=== PATIENT | female | born 1970 | race Caucasian/White ===

== ENCOUNTER 2022-11-06 06:00 | Outpatient (RCR) | payer BC, SELFPAY | END 2022-11-27 23:59 | disposition home or self-care (01) | LOC: GPT 06:00 | PROVIDERS: Visit Provider Family Medicine | DX: M25.562 Pain in left knee (principal); G89.29 Other chronic pain | CPT/HCPCS: 97162 ==

== ENCOUNTER 2022-11-28 06:00 | Outpatient (RCR) | payer BC, SELFPAY | END 2022-12-28 23:59 | disposition home or self-care (01) | LOC: GPT 06:00 | PROVIDERS: Visit Provider Family Medicine | DX: M25.562 Pain in left knee (principal); G89.29 Other chronic pain | CPT/HCPCS: 97110; 97140; 97530; G0283 ==

== ENCOUNTER 2022-12-29 06:00 | Outpatient (RCR) | payer BC, SELFPAY | END 2023-01-27 23:59 | disposition home or self-care (01) | LOC: GPT 06:00 | PROVIDERS: Visit Provider Family Medicine | DX: M25.562 Pain in left knee (principal); G89.29 Other chronic pain | CPT/HCPCS: 97110; 97112; 97140 ==

== ENCOUNTER 2023-01-28 06:00 | Outpatient (RCR) | payer BC, SELFPAY | END 2023-02-27 23:59 | disposition home or self-care (01) | LOC: GPT 06:00 | PROVIDERS: Visit Provider Family Medicine | DX: M25.562 Pain in left knee (principal); G89.29 Other chronic pain | CPT/HCPCS: 97110; 97112; 97140 ==

== ENCOUNTER → 2023-08-13 15:43 | Outpatient (BNVA) | payer BC, OTHER, SELFPAY | PROVIDERS: PCP Nurse Practitioner Family; Visit Provider Nurse Practitioner Family | DX: S99.922A Unspecified injury of left foot, initial encounter (principal); W19.XXXA Unspecified fall, initial encounter | CPT/HCPCS: 73630 ==

== ENCOUNTER → 2023-09-09 11:15 | Outpatient (BNVA) | payer BC, OTHER, SELFPAY | PROVIDERS: PCP Nurse Practitioner Family; Visit Provider Nurse Practitioner Family | DX: J02.9 Acute pharyngitis, unspecified (principal); R05.9 Cough, unspecified | CPT/HCPCS: 87400; 87426; 87880 ==

== ENCOUNTER → 2024-01-01 14:55 | Outpatient (BNVA) | payer BC, OTHER, SELFPAY | PROVIDERS: PCP Nurse Practitioner Family; Visit Provider Nurse Practitioner Family | DX: J02.9 Acute pharyngitis, unspecified (principal) | CPT/HCPCS: 87070; 87071; 87400; 87426; 87880 ==

== ENCOUNTER 2024-07-16 16:27 | Emergency (ER) | payer BC, OTHER, SELFPAY ==
[2024-07-16 16:40] VITALS: BP 169/111; PULSE 90; RESP 20; TEMP 36.8; O2SAT 97; BMI 40.5
[2024-07-16 17:45] LABS: Basophils # 0.1 10^3/uL (0.0-0.1); Basophils % 0.5 %; Eosinophils # 0.2 10^3/uL (0.0-0.8); Eosinophils % 1.5 %; Hematocrit 37.8 % (36-47); Lymphocytes # 3.5 10^3/uL (0.8-4.8); Lymphocytes % 32.1 %; Mean Corpuscular HGB Conc 32.8 g/dL (30-55); Mean Corpuscular Hemoglobin 30.5 pg (27-33); Mean Corpuscular Volume 92.9 fl (85-98); Mean Platelet Volume 9.3 fL (7.4-10.4); Monocytes # 0.8 10^3/uL (0.2-0.9); Monocytes % 7.4 %; Neutrophils % 58.2 %; Nucleated Red Blood Cells % 0 %; Platelet Count 259 10^3/cmm (157-399); Red Blood Count 4.07 10^6/uL (3.85-5.65); Red Cell Distribution Width 13.2 % (12.1-15.1)
[2024-07-16 18:02] LABS: Albumin Level 4.3 g/dL (3.5-5.2); Alkaline Phosphatase 78 U/L (35-105); Anion Gap 15.4 (5-19); Aspartate Amino Transferase 15 U/L (0-32); Blood Urea Nitrogen 29 mg/dL (6-20); Calcium 9.1 mg/dL (8.5-10.5); Carbon Dioxide 23 mmol/L (22-29); Chloride 103 mmol/L (98-107); Creatinine Clr Calc Pharmacy 83.3432; Glomerular Filtration Rate 64.8 mL/min (90-130); Glucose 89 mg/dL (65-115); Lipase 38 U/L (13-60); Osmolality Calculated 289 mOsm/kg (285-295); Potassium 4.4 mmol/L (3.5-5.1); Sodium 137 mmol/L (136-145); Total Bilirubin 0.2 mg/dL (0.15-1.2); Total Protein 7.3 g/dL (6.6-8.7)
[2024-07-16 18:15] LABS: Alanine Aminotransferase 18 U/L (0-33)
[2024-07-16 19:18] VITALS: BP 148/95; PULSE 72; O2SAT 100
--- NOTE | 2024-07-16 19:19 | ED_ITS ---
HPI - Abdominal Pain 2 General: Chief Complaint: Abdominal Pain Stated Complaint: abd pain Time Seen by Provider: 07/16/24 19:15 History of Present Illness: 54-year-old female who presents to the e mergency room with right upper quadrant pain. She had planned on having her gallbladder out in [place] but this was out of network so she had not done it yet. She also had some concerns for her weight loss shots. However she says she has not been taking these and so she does not think it is that. Pain is worse today so she came to the emergency room. Some nausea. No vomiting. No fever. No altered mental status Related Data Home Medications Medication Instructions Recorded Confirmed atenolol 25 mg tablet 25 mg PO DAILY 07/02/23 01/01/24 clonidine HCl 0.1 mg tablet 0.1 mg PO DAILY PRN 07/02/23 01/01/24 gabapentin 300 mg capsule 300 mg PO TID 07/02/23 01/01/24 oxycodone-acetaminophen 10 mg-325 1 tab PO Q4H PRN 07/02/23 01/01/24 mg tablet (Percocet) tizanidine 4 mg capsule 8 mg PO TID PRN 07/02/23 01/01/24 quetiapine 50 mg tablet (Seroquel) 150 mg PO .qhs 07/31/23 01/01/24 Previous Rx's Medication Instructions Recorded tirzepatide 2.5 mg/0.5 mL 2.5 mg (0.5 mL) SUBCUT .weekly #2 09/02/23 subcutaneous pen injector mL albuterol sulfate 2.5 mg/3 mL 2.5 mg (3 mL) inhalation Q4H PRN 01/01/24 (0.083 %) solution for nebulization shortness of breath or wheezing #90 mL amoxicillin 875 mg-potassium 1 tab PO Q12H 10 days #20 tabs 01/01/24 clavulanate 125 mg tablet dextromethorphan-guaifenesin 10 10 ml PO Q6H PRN cough #300 mL 01/01/24 mg-100 mg/5 mL oral liquid (Lisa-Tussin DM) hydrocodone 5 mg-acetaminophen 325 1 tab PO Q8H PRN pain #14 tabs 07/16/24 mg tablet ondansetron 8 mg disintegrating 8 mg PO Q6H #14 tabs 07/16/24 tablet polyethylene glycol 3350 17 17 g PO DAILY #510 grams 07/16/24 gram/dose oral powder (Miralax) Allergies Allergy/AdvReac Type Severity Reaction Status Date / Time droperidol Allergy Severe CHEST PAIN Verified 07/16/24 16:40 ziprasidone [From Geodon] Allergy Severe SUICIDAL Verified 07/16/24 16:40 naproxen [From Naprosyn] AdvReac Intermediate ADR-Vomitin Verified 07/16/24 16:40 g Review of Systems 2 Narrative: Constitutional symptoms: Negative except as documented in HPI. Skin symptoms: Negative except as documented in HPI. Eye symptoms: Negative except as documented in HPI. ENMT symptoms: Negative except as documented in HPI. Respiratory symptoms: Negative except as documented in HPI. Cardiovascular symptoms: Negative except as documented in HPI. Gastrointestinal symptoms: Negative except as documented in HPI. Genitourinary symptoms: Negative except as documented in HPI. Musculoskeletal symptoms: Negative except as documented in HPI. Neurologic symptoms: Negative except as documented in HPI. Psychiatric symptoms: Negative except as documented in HPI. Endocrine symptoms: Negative except as documented in HPI. PFSH ED 2 PFSH: Family History Other CAD (coronary artery disease) Cancer Diabetes Social History Smoking and tobacco/nicotine status: current every day tobacco/nicotine user cigarettes Packs smoked per day: 0.5 Alcohol intake: current Alcohol intake frequency: few times a month Substance/Drug Use: former Date of last use: 2014 Physical Exam 2 Narrative: EXAM NARRATIVE: General: Alert, no acute distress. Skin: Warm, dry. Head: Normocephalic, atraumatic. Neck: Supple, trachea midline. Eye: Extraocular movements are intact. Ears, nose, mouth and throat: mucosa moist. Cardiovascular: Regular, Normal peripheral perfusion. Respiratory: Lungs are clear to auscultation, respirations are non-labored, breath sounds are equal, Symmetrical chest wall expansion. Gastrointestinal: Soft, right upper quadrant tenderness, Non distended Musculoskeletal: Normal ROM, no deformity. Neurological: Alert and oriented, No focal neurological deficit observed. Psychiatric: Cooperative, appropriate mood & affect. Course 2 Vital Signs: Vital signs: Vital Signs Temperature 98.2 F 07/16/24 16:40 Pulse Rate 72 07/16/24 19:18 Respiratory Rate 20 H 07/16/24 16:40 Blood Pressure 148/95 07/16/24 19:18 Pulse Oximetry 100 07/16/24 19:18 MDM - Abdominal Pain Medical Decision Making Differential diagnosis for patient presenting with right upper quadrant abdominal pain including but not limited to and based on the above HPI, review of systems and physical exam: Cholelithiasis or cholecystitis. Hepatitis. Diverticulitis. Constipation. Ureterolithiasis. Urinary tract infection. Appendicitis. colitis. small bowel obstruction. crohn's flare. pancreatitis. gastritis. peptic ulcer. Aortic disection. Workup including imaging and lab work replaced based on the above differential, history and exam to evaluate differential diagnosis Lab Review: Laboratory results were reviewed and interpreted by myself the emergency room physician. No leukocytosis. No anemia. BUN is slightly elevated at 29. Creatinine normal at 0.9 Ultrasound of the gallbladder: Some sludge but no signs of cholecystitis. This was reviewed and interpreted by myself the emergency room physician. I also reviewed the radiology report. I reviewed the patient's medical record. Reexamination: Patient remained stable. No increased work of breathing. No altered mental status. No focal motor deficits. Assessment and plan: Biliary colic ?Meron and Julio. Follow-up with general surgery - Discharged home - Discussed findings and plan with patient. Answered any questions. - All laboratory values were reviewed and interpreted personally by myself, the ER physician - All imaging was reviewed and interpreted personally by myself, the ER physician. - Evaluation and treatment of this problem were appropriate in the emergency setting Lab Data 07/16/24 17:35 07/16/24 17:35 Labs/Radiology: Radiology Impressions Gallbladder Ultrasound 07/16/24 19:19 IMPRESSION: 1. Mildly distended gallbladder with a small amount of dependent sludge. No sonographic evidence of acute cholecystitis. 2. Fatty liver. Laboratory Results WBC 11.00 10^3/uL (3.29-11.43) 07/16/24 17:35 RBC 4.07 10^6/uL (3.85-5.65) 07/16/24 17:35 Hgb 12.40 g/dL (11.27-16.99) 07/16/24 17:35 Hct 37.8 % (36-47) 07/16/24 17:35 MCV 92.9 fl (85-98) 07/16/24 17:35 MCH 30.5 pg (27-33) 07/16/24 17:35 MCHC 32.8 g/dL (30-55) 07/16/24 17:35 RDW 13.2 % (12.1-15.1) 07/16/24 17:35 Plt Count 259 10^3/cmm (157-399) 07/16/24 17:35 MPV 9.3 fL (7.4-10.4) 07/16/24 17:35 Neut % (Auto) 58.2 % 07/16/24 17:35 Lymph % (Auto) 32.1 % 07/16/24 17:35 [place] % (Auto) 7.4 % 07/16/24 17:35 Eos % (Auto) 1.5 % 07/16/24 17:35 Baso % (Auto) 0.5 % 07/16/24 17:35 Neut # (Auto) 6.40 10^3/uL (1.8-7.7) 07/16/24 17:35 Lymph # (Auto) 3.5 10^3/uL (0.8-4.8) 07/16/24 17:35 [place] # (Auto) 0.8 10^3/uL (0.2-0.9) 07/16/24 17:35 Eos # (Auto) 0.2 10^3/uL (0.0-0.8) 07/16/24 17:35 Baso # (Auto) 0.1 10^3/uL (0.0-0.1) 07/16/24 17:35 Nucleated RBC % (auto) 0 % 07/16/24 17:35 Nucleated RBCs # 0.0 /100WBC 07/16/24 17:35 Sodium 137 mmol/L (136-145) 07/16/24 17:35 Potassium 4.4 mmol/L (3.5-5.1) 07/16/24 17:35 Chloride 103 mmol/L (98-107) 07/16/24 17:35 Carbon Dioxide 23 mmol/L (22-29) 07/16/24 17:35 Anion Gap 15.4 (5-19) 07/16/24 17:35 BUN 29 mg/dL (6-20) H 07/16/24 17:35 Creatinine 0.9 mg/dL (0.5-0.9) 07/16/24 17:35 GFR Calculation 64.8 mL/min (90-130) L 07/16/24 17:35 Glucose 89 mg/dL (65-115) 07/16/24 17:35 Calculated Osmolality 289 mOsm/kg (285-295) 07/16/24 17:35 Calcium 9.1 mg/dL (8.5-10.5) 07/16/24 17:35 Total Bilirubin 0.2 mg/dL (0.15-1.2) 07/16/24 17:35 AST 15 U/L (0-32) 07/16/24 17:35 ALT 18 U/L (0-33) 07/16/24 17:35 Alkaline Phosphatase 78 U/L (35-105) 07/16/24 17:35 Total Protein 7.3 g/dL (6.6-8.7) 07/16/24 17:35 Albumin 4.3 g/dL (3.5-5.2) 07/16/24 17:35 Globulin 3.0 g/dL (1.3-4.6) 07/16/24 17:35 Lipase 38 U/L (13-60) 07/16/24 17:35 Urine Color Yellow (Yellow) 07/16/24 Unknown Urine Appearance Clear (CLEAR) 07/16/24 Unknown Urine pH 5.5 (5-7) 07/16/24 Unknown Ur Specific [place] 1.030 (1.005-1.030) 07/16/24 Unknown Urine Protein Negative (Negative) 07/16/24 Unknown Urine Glucose (UA) Negative (Normal) 07/16/24 Unknown Urine Ketones Negative (Negative) 07/16/24 Unknown Urine Blood Negative (Negative) 07/16/24 Unknown Urine Nitrate Negative (Negative) 07/16/24 Unknown Urine Bilirubin Negative (Negative) 07/16/24 Unknown Urine Urobilinogen 1.0 mg/dL (Negative) 07/16/24 Unknown Ur Leukocyte Esterase Negative (Negative) 07/16/24 Unknown Urine RBC 0-2 /hpf (0-2) 07/16/24 Unknown Urine WBC 0-5 /hpf (0-5) 07/16/24 Unknown Ur Squamous Epith Cells 11-20 /hpf (0-5) 07/16/24 Unknown Amorphous Sediment Not Reportable 07/16/24 Unknown Urine Bacteria 1+ /hpf (NONE) H 07/16/24 Unknown Hyaline Casts 0.40 /lpf 07/16/24 Unknown All radiology interpretation(s) finalized by discharge Discharge Plan Discharge Patient Disposition: Home Clinical Impression: Biliary colic Condition: Stable Prescriptions: New hydrocodone-acetaminophen 5-325 mg tablet 1 tab PO Q8H PRN (Reason: pain) Qty: 14 0RF Rx Instructions: Take 1/2 to 1 tab every 8 hours as needed for pain polyethylene glycol 3350 [Miralax] 17 gram/dose powder 17 g PO DAILY Qty: 510 0RF Rx Instructions: Take 1 scoop daily while taking pain medications. ondansetron 8 mg tablet,disintegrating 8 mg PO Q6H Qty: 14 0RF Rx Instructions: Take 1/2-1 tab every 6 hours as needed for nausea and vomiting No Action oxycodone-acetaminophen [Percocet] 10-325 mg tablet 1 tab PO Q4H PRN tizanidine 4 mg capsule 8 mg PO TID PRN gabapentin 300 mg capsule 300 mg PO TID atenolol 25 mg tablet 25 mg PO DAILY clonidine HCl 0.1 mg tablet 0.1 mg PO DAILY PRN Rx Instructions: take only if systolic blood pressure is greater than 180 quetiapine [Seroquel] 50 mg tablet 150 mg PO .qhs tirzepatide 2.5 mg/0.5 mL pen injector 2.5 mg SUBCUT .weekly Qty: 2 0RF albuterol sulfate 2.5 mg /3 mL (0.083 %) solution for nebulization 2.5 mg inhalation Q4H PRN (Reason: shortness of breath or wheezing) Qty: 90 0RF dextromethorphan-guaifenesin [Lisa-Tussin DM] 10-100 mg/5 mL liquid 10 ml PO Q6H PRN (Reason: cough) Qty: 300 0RF amoxicillin-pot clavulanate 875-125 mg tablet 1 tab PO Q12H 10 Days Qty: 20 0RF Discharge Orders: Discharge ED (Routine); Ordered 07/16/24 Ordered By: Arleth Vo Referrals: Aroldo Christie DO [Physician] - 4-7 days (Please call for an appointment.) Sheree Jorge, NETO [Primary Care Provider] - Discharge Diet: As Directed Discharge Activity: Increase activity as tolerated Patient Instructions: Biliary Colic (ED), Abdominal Pain (ED) Activity Restrictions/Additional Instructions: Thank you for choosing [facility] for your healthcare needs today. Please realize this is an emergency room and that we are providing you with a medical screening exam and this may not be complete and all inclusive of all the testing and or work up that you may need to determine your ailment or severity of your illness. You have been screened and evaluated and felt safe for discharge. Health conditions do change or evolve sometimes and as such it is important that you follow up with your Primary Doctor to be re checked, 3-5 days is a general good time frame for follow up. You are always welcome to return to the ED for re assessment if your symptoms are worsening or you have new concerns Coding Level of Care Code ED Broaching Machine Set Up Operator for Patrick Jerry
--- NOTE | 2024-07-16 19:19 | USR_ITS ---
PROCEDURE INFORMATION: Exam: US Abdomen, Limited; Right Upper Quadrant Exam date and time: 07/16/2024 7:54 PM Age: 54 years old Clinical indication: Abdominal pain; Epigastric; Additional info: Right upper quadrant pain, concern for cholecystitis TECHNIQUE: Imaging protocol: Real time ultrasound of the abdomen with image documentation. Limited exam focused on the right upper quadrant. COMPARISON: No relevant prior studies available. FINDINGS: Liver: Echogenic, consistent with fatty infiltration. Gallbladder: Mildly distended with a small amount of dependent sludge. No gallstones. No gallbladder wall thickening or pericholecystic fluid. Negative sonographic Bradford's sign, as per the performing factory maintenance technician. Biliary ducts: No stones. No ductal dilatation. Pancreas: Unremarkable as visualized. Right kidney: No mass. No definite stones. No hydronephrosis. US/US gall bladder 89580 IMPRESSION: 1. Mildly distended gallbladder with a small amount of dependent sludge. No sonographic evidence of acute cholecystitis. 2. Fatty liver.
[2024-07-16 19:47] LABS: Bilirubin Urine Negative (Negative); Blood Urine Negative (Negative); Glucose Urine UA Negative (Normal); Ketones Urine Negative (Negative); Leukocyte Esterase Urine Negative (Negative); Nitrate Urine Negative (Negative); Protein Urine Negative (Negative); Urine Appearance Clear (CLEAR); Urine Color Yellow (Yellow); pH Urine 5.5 (5-7)
[2024-07-16 19:49] LABS: Add Urine Microscopic? YES; Bacteria Urine 1+ /hpf; RBC Urine 0-2 /hpf (0-2); WBC Urine 0-5 /hpf (0-5)
[2024-07-16 21:30] VITALS: PULSE 61; O2SAT 99
--- NOTE | 2024-07-16 22:20 | PC.NURSE ---
This nurse assumed care of patient at 2129.
[2024-07-16 22:28] VITALS: BP 150/93; PULSE 68; O2SAT 99
== END 2024-07-16 22:30 | disposition home or self-care (01) ==
PROVIDERS: Emergency Medicine; Emergency Provider Emergency Medicine; PCP Nurse Practitioner Family
DX: K80.50 Calculus of bile duct without cholangitis or cholecystitis without obstruction (principal); F17.210 Nicotine dependence, cigarettes, uncomplicated
CPT/HCPCS: 36415; 76705; 80053; 81001; 83690; 85025; 99284

== ENCOUNTER 2024-08-11 07:51 | Day surgery (SDC) | payer BC, OTHER, SELFPAY ==
[2024-08-11] VITALS (13 sets, daily range): BP systolic 126–160; BP diastolic 64–94; PULSE 64–105; RESP 12–20; TEMP 36.2–36.6; O2SAT 96–100; BMI 41.1
--- NOTE | 2024-08-11 07:56 | W.PM.OPSUD ---
Surgery/Procedure H&P Update DATE OF PROCEDURE: August 11, 2024 DATE H&P PERFORMED: 07/27/24 H&P UPDATE INFORMATION: I have reviewed H&P completed within last 30 days, I have examined patient prior to procedure and No changes to prior documentation PLANNED PROCEDURE: Operation Date: 08/11/24 09:45 Proposed Procedures p Laparoscopic Cholecystectomy - 71492, k80.20(Not Applicable) - Aroldo Christie, DO
[2024-08-11] MEDS: sodium chloride 0.9% 1,000 ML 30 ML IV (08:25)
--- NOTE | 2024-08-11 08:40 | ANES.PREANE2 ---
Pre-Anesthetic Assessment Height/Weight: Height 5 ft 4 in Weight 240 lb Temp Pulse Resp BP Pulse Ox O2 Del Method 97.4 F L 73 15 150/89 100 Room Air 08/11/24 08:18 08/11/24 08:18 08/11/24 08:18 08/11/24 08:18 08/11/24 08:18 08/11/24 08:18 Preop Diagnosis: Cholecystitis Operation Date: 08/11/24 09:45 Proposed Procedures p Laparoscopic Cholecystectomy - 00570, k80.20(Not Applicable) - Aroldo Christie, DO Was Beta Connor taken within 24 hours: Yes Was Clonidine taken within 24 hours: N/A Last intake: Intake Last Liquid Date 08/10/24 Last Liquid Time 23:30 Last Solid Date 08/10/24 Last Solid Time 23:00 Social Tobacco and No alcohol Exam alert, oriented x 3, clear to auscultation bilaterally and regular rate & rhythm Airway Submandibular: within normal limits Cervical ROM: within normal limits Mallampati: Class III Dentition: other Comments: Comments: Edentulous Anesthetic Plan ASA status: 3 Anesthesia: General Other: No prior issues with anesthesia NPO since yesterday History of hypertension on atenolol, clonidine and olmesartan. Preop BP 150/89 Prior semaglutide use, not used in the last month Chronic oxycodone use Labs 07/16/2024 reviewed and acceptable for procedure METs greater than 4 Plan for GETA Medications/Allergies Home Medications Medication Instructions Recorded Confirmed Last Taken Type atenolol 25 mg tablet 25 mg PO DAILY 07/02/23 08/10/24 08/09/24 History clonidine HCl 0.1 mg tablet 0.1 mg PO DAILY PRN Blood Pressure 07/02/23 08/10/24 Unknown History gabapentin 300 mg capsule 300 mg PO TID 07/02/23 08/10/24 08/09/24 History oxycodone-acetaminophen 10 mg-325 1 tab PO Q4H PRN Pain 07/02/23 08/11/24 08/11/24 History mg tablet (Percocet) tizanidine 4 mg capsule 8 mg PO TID PRN Pain 07/02/23 08/10/24 08/09/24 History quetiapine 50 mg tablet (Seroquel) 150 mg PO .qhs 07/31/23 08/10/2408/09/24 History albuterol sulfate 2.5 mg/3 mL 2.5 mg (3 mL) inhalation Q4H PRN 01/01/24 08/10/24 Unknown Rx (0.083 %) solution for nebulization shortness of breath or wheezing #90 mL ondansetron 8 mg disintegrating 8 mg PO Q6H #14 tabs 07/16/24 08/10/24 Unknown Rx tablet polyethylene glycol 3350 17 17 g PO DAILY #510 grams 07/16/24 08/10/24 08/09/24 Rx gram/dose oral powder (Miralax) hydrocodone bitartrate 30 mg 30 mg PO DAILY 07/27/24 08/10/24 08/10/24 History tablet,crush resist,extended rel. 24hr (Hysingla ER) olmesartan 5 mg tablet 5 mg PO BID 07/27/24 08/10/24 Unknown History semaglutide (weight loss) 0.5 0.5 mg SUBCUT Q7D 07/27/24 08/10/24 07/13/24 History mg/0.5 mL subcutaneous pen injector topiramate 25 mg tablet 25 mg PO DAILY 08/10/24 08/10/24 08/10/24 History Allergies Allergy/AdvReac Type Severity Reaction Status Date / Time droperidol Allergy Severe CHEST PAIN Verified 08/11/24 08:08 ziprasidone [From Geodon] Allergy Severe SUICIDAL Verified 08/11/24 08:08 naproxen [From Naprosyn] AdvReac Intermediate ADR-Vomitin Verified 08/11/24 08:08 g Current Medications Generic Name Dose Route Start Last Admin Trade Name Freq PRN Reason Stop Dose Admin Sodium Chloride 1,000 mls @ 30 mls/hr 08/11/24 08:00 08/11/24 08:25 Sodium Chloride 0.9% IV 08/12/24 07:59 30 mls/hr .Q24H FERNANDO Administration PFSH Anesthesia Family History Other CAD (coronary artery disease) Cancer Diabetes Social History Smoking and tobacco/nicotine status: current every day tobacco/nicotine user cigarettes Packs smoked per day: 0.5 Alcohol intake: current Alcohol intake frequency: few times a month Substance/Drug Use: former Date of last use: 2014 Data Anesthesia Cardiac Studies: No Data to Display
[2024-08-11] MEDS: ceFAZolin 2,000 mg SDV 2000 MG IVP (08:42)
[2024-08-11] MEDS: lidocaine-epi 2% PF 1:200,000 20 mL SDV XX (09:12)
[2024-08-11] MEDS: tranexamic acid 1,000 mg/10mL SDV 1000 MG IV (09:30)
--- NOTE | 2024-08-11 09:41 | P.OP_ITS ---
Operative Report Date of procedure: August 11, 2024 Surgeon: Aroldo Christie DO Brief History: This very pleasant 54-year-old female was diagnosed with symptomatic cholelithiasis. Laparoscopic cholecystectomy was indicated. The risks and benefits were explained and documented. Procedure: Preoperative diagnosis: Symptomatic cholelithiasis Postoperative diagnosis: Same Procedure performed: Laparoscopic cholecystectomy, laparoscopic lysis of adhesions Surgeon: Dr. Aroldo Christie DO Estimated blood loss: 5 mL Specimens: Gallbladder to pathology Complications: None apparent Description of procedure: Patient was wheeled into the operative room and placed on the OR table in a supine position. Abdomen was inspected prepped and draped in usual sterile fashion. Time-out was performed and all present were in agreement. A 15 blade scalp was used to make a stab incision in the left upper quadrant and intra- abdominal insufflation was achieved using a Veress needle. After localizing the tissue incisions were made and a 5 millimeter trocar was placed into the umbilicus as well as 2 in the right upper quadrant. A 12 millimeter trocar was placed in the epigastrium. Significant omental and duodenal adhesions to the gallbladder. These were very carefully taken down by laparoscopic lysis of adhesions with electrocautery. The duodenum was preserved and examined for integrity. No damage to the duodenum was identified. Gallbladder was grasped and elevated. The triangle of Calot was carefully dissected using blunt dissection and electrocautery until the triangle of Calot clearly identified. The cystic duct was clipped proximally and double clipped distally. The duct was then ligated proximally. The cystic artery was doubly clipped and ligated. The gallbladder was then removed from the liver bed using electrocautery. The gallbladder was removed from the abdomen using an Endo- Catch bag through the epigastric incision. The liver bed was inspected and minor blood oozing was controlled with electrocautery and 1 g of tranexamic acid. The abdomen was irrigated and suctioned. All ports removed. Skin was washed and dried. Incisions were closed with 4-0 Monocryl in a subcuticular interrupted fashion. Skin glue was applied. Patient tolerated the procedure well.
[2024-08-11] MEDS: fentaNYL 50 mcg/mL INJ 2mL IVP (10:07)
[2024-08-11] MEDS: oxyCODONE-APAP 10-325 mg Tablet 1 TAB PO (10:34)
--- NOTE | 2024-08-11 11:35 | ANE.PACU2 ---
Inpatient post-anesthesia follow up: Airway intact: Yes Vital signs: Temperature 97.8 F Pulse Rate 66 Respiratory Rate 16 Blood Pressure 140/64 Pulse Oximetry 98 Oxygen Delivery Me thod Room Air Oxygen Flow Rate 8 Fraction of Inspir ed Oxygen Hydration adequate: Yes Nausea and vomiting: No Pain level: 1 Mental status: Baseline
== END 2024-08-11 11:35 | disposition home or self-care (01) ==
PROVIDERS: PCP Nurse Practitioner Family; Visit Provider Surgery
PROC: 0FT44ZZ Resection of Gallbladder, Percutaneous Endoscopic Approach (ICD-10-PCS; CPT 47562; principal; 2024-08-11 09:35)
DX: K80.10 Calculus of gallbladder with chronic cholecystitis without obstruction (principal); K66.0 Peritoneal adhesions (postprocedural) (postinfection); I10 Essential (primary) hypertension; F17.210 Nicotine dependence, cigarettes, uncomplicated
CPT/HCPCS: 47562; 88304; J0690; J1100; J1171; J1885; J2250; J2405; J2704; J3010; J3490; J7030

== ENCOUNTER 2025-01-21 14:00 | Outpatient (CLI) | payer BC, OTHER, SELFPAY ==
--- NOTE | 2025-01-21 14:00 | MM_ITS ---
WS: [id number] VIEWS: MLO and CC views both breasts. 3D digital tomosynthesis is also included in this exam. Comparison made with prior exam of 01/03/2010.. Findings: The breasts are heterogeneously dense, which may obscure small masses. No suspicious mass, tumor calcification or architectural distortion. MM/MM scr BI tomosynthesis [id number] Impression: BI-RADS: 2 - Benign FOLLOW-UP: 1 Year Follow-up This mammogram was also analyzed by the Computer Aided Detection System R2 Imag e Literary Agent.
== END 2025-01-21 14:01 | disposition home or self-care (01) ==
PROVIDERS: PCP Nurse Practitioner Family; Visit Provider Nurse Practitioner Family
DX: Z12.31 Encounter for screening mammogram for malignant neoplasm of breast (principal); R92.333 Mammographic heterogeneous density, bilateral breasts
CPT/HCPCS: 77063; 77067

== ENCOUNTER 2025-08-23 19:47 | Outpatient (CLI) | payer OTHER, MEDICAID, BC, SELFPAY | END 2025-08-23 19:48 | disposition home or self-care (01) | LOC: SLEEP 19:49 | PROVIDERS: PCP Nurse Practitioner Family; Referring Provider Nurse Practitioner Family; Visit Provider Internal Medicine Pulmonary Disease | DX: G47.33 Obstructive sleep apnea (adult) (pediatric) (principal) | CPT/HCPCS: 95810 ==

== ENCOUNTER 2025-09-27 16:25 | Emergency (ER) | payer BC, OTHER, MEDICAID, SELFPAY ==
--- OUTSIDE RECORDS SUMMARY | 2025-09-27 16:31 | XMS_ITS | Clinical Summary ---
Author Organization [facility] Address [address] [place]: Epic [place] [address] Care Team Providers Care Historiographer Name Role Phone Maribell Traylor MD Primary Care Provider [phone] Allergies Active Allergy Reactions Criticality Noted Date Comments Droperidol Unknown 03/04/2012 Hydrocodone-Acetaminophen Itching Low 03/04/2012 Naproxen Unknown 01/14/2018 Paliperidone Unknown 03/04/2012 Medications tiZANidine (ZANAFLEX) 4 mg Tablet Take 8 mg by mouth every 8 hours as needed for Spasm. Active olmesartan (BENICAR) 5 mg tablet Take 5 mg by mouth daily. Active QUEtiapine (SEROquel) 50 mg tablet Take 50 mg by mouth daily. Active atenoloL (TENORMIN) 25 mg tablet Take 25 mg by mouth daily. Active oxyCODONE (OxyCONTIN) 20 mg Controlled Release 12 hour crush resistant tablet Take 20 mg by mouth every 12 hours. Active morphine (MS IR) 15 mg tablet Take 15 mg by mouth 2 times daily as needed for Pain, Break-Through. Active gabapentin (NEURONTIN) 300 mg capsule Take 300 mg by mouth 3 times daily. Active semaglutide, weight loss, (Wegovy) 0.5 mg/0.5 mL Pen Injector Inject 0.5 mg by subcutaneous injection every 7 days. Active topiramate (TOPAMAX) 25 mg tablet Take 25 mg by mouth daily. Active cloNIDine HCL (CATAPRES) 0.1 mg tablet Take 0.1 mg by mouth 1 time daily as needed. 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 2021 Encounters Date Type Department Care Team Description 09/14/2025 External Device Data [facility] ABSTRACTION Provider, Abstract 09/14/2025 External Device Data [facility] ABSTRACTION Provider, Abstract 09/07/2025 External Device Data [facility] ABSTRACTION Provider, Abstract 08/17/2025 External Device Data [facility] ABSTRACTION Provider, Abstract 08/10/2025 Telephone [facility] [place] [id number] [facility] [place] [address] Leander Hammond MD Question 07/28/2025 External Device Data ST[facility] ABSTRACTION Provider, Abstract 07/27/2025 External Device Data [facility] ABSTRACTION Provider, Abstract from Last 3 Months Family History Medical History Relation Name Comments Diabetes Father Lung Cancer Father Heart Disease Maternal Grandfather Diabetes Maternal Grandmother Heart Disease Mother Hypertension Mother Stroke Mother Diabetes Paternal Grandmother Relation Name Status Comments Father Maternal Grandfather Maternal Grandmother Mother Paternal Grandmother Social History Tobacco Use Types Packs/Day Years Used Date Smoking Tobacco: Every Day Cigarettes Smokeless Tobacco: Never Tobacco Cessation:Ready to Q uit: Not Asked; Counseling Given: Not Answered Alcohol Use Standard Drinks/Week Comments Yes 0 (1 standard drink = 0.6 oz pur e alcohol) Comments Unknown Sex and Gender Information Value Date Recorded Sex Assigned at Female 09/14/2024 10:24 AM FRAME OPENER Legal Sex Female 12:45 PM FRAME OPENER Gender Identity Female 09/14/2024 10:24 AM FRAME OPENER Sexual Orientation Straight 09/14/2024 10 :24 AM FRAME OPENER Last Filed Vital Signs Vital Sign Reading Time Taken Comments Blood Pressure 136/78 2025 11:43 AM CDT Pulse 113 04/03/2022 8:24 AM CDT Temperature 36.9 C (98.4 F) 04/03/2022 8:24 AM CDT Respiratory Rate 18 04/03/2022 8:24 AM CDT Oxygen Saturation 96% 04/03/2022 8:24 AM CDT Inhaled Oxygen Concentration - - Weight 124.3 kg (274 lb) 2025 11:43 AM CDT Height 162.6 cm (5' 4 ) 2025 11:43 AM CDT Body Mass Index 47.03 2025 11:43 AM CDT Plan of Treatment Health Maintenance Due Date Last Done Comments Pre-Diabetes and Diabetes Screening 1970 DTAP/TDAP/TD VACCINES (1 - Tdap) 12/31/1986 HEPATITIS B VACCINES (1 of 3 - 19+ 3-dose series) 11/1986 HPV/Cotest (21-29) 12/31/1988 CERVICAL CANCER SCREENING 12/31/1997 HPV/Cotest (30-65) 12/31/1997 PAP SMEAR 12/31/1997 BREAST CANCER SCREENING 2008 COLORECTAL SCREENING 12/31/2012 Colorectal Cancer Screening 12/31/2012 FIT-DNA Q 3 years 12/31/2012 FIT/FOBT Q 1 year 12/31/2012 Flex Sig/CT Colonography Q 5 years 12/31/2012 ZOSTER VACCINE (1 of 2) 12/31/2017 INFLUENZA VACCINE (#1) 2025 Insurance [facility] [id number] Care Teams Historiographer Relationship Specialty Start Date End Date Maribell Traylor MD [address] [place] [address] PCP - General Internal Medicine 01/14/18
[2025-09-27 16:49] VITALS: BP 177/102; PULSE 82; TEMP 36.8; O2SAT 97; BMI 49.9
--- NOTE | 2025-09-27 17:29 | XRR_ITS ---
PROCEDURE INFORMATION: Exam: XR Chest Exam date and time: 09/27/2025 5:31 PM Age: 55 years old Clinical indication: Pain; Angina pectoris; Additional info: Chest pain TECHNIQUE: Imaging protocol: Radiologic exam of the chest. Views: 1 view. COMPARISON: No relevant prior studies available. FINDINGS: Lungs: Unremarkable. No consolidation. Pleural spaces: Unremarkable. No pleural effusion. No pneumothorax. Heart/Mediastinum: Heart is enlarged. Bones/joints: Unremarkable. XR/XR chest 1V portable [id number] IMPRESSION: Cardiomegaly
--- NOTE | 2025-09-27 17:39 | ECG_ITS ---
[employer] Test Date: 2025-09-27 Pat Name: Mary Koo Department: Room: Gender: Female Customs And Immigration Officer: : 1970 Requested By: Rogelio Pichardo Order Number: [id number] Chanelle MD: Berto Pena M.D. Measurements Intervals [place] Rate: 78 P: 57 UT: 165 QRS: -14 QRSD: 97 T: 85 QT: 390 QTc: 445 Interpretive Statements SINUS RHYTHM WITH SINUS ARRHYTHMIA NONSPECIFIC T-WAVE ABNORMALITY No previous ECG available for comparison Electronically Signed On 09-30-2025 16:19:40 TYPE CASTING MACHINE OPERATOR by Berto Pena M.D. [email or web address]
[2025-09-27 17:57] LABS: Hematocrit 38.5 % (36-47); Hemoglobin 12.10 g/dL (11.27-16.99); Mean Corpuscular HGB Conc 31.4 g/dL (30-55); Mean Corpuscular Hemoglobin 28.9 pg (27-33); Mean Corpuscular Volume 91.9 fl (85-98); Nucleated Red Blood Cells % 0 %; Platelet Count 253 10^3/cmm (157-399); Red Blood Count 4.19 10^6/uL (3.85-5.65); White Blood Count 10.19 10^3/uL (3.29-11.43)
[2025-09-27 18:15] LABS: Troponin(5th) Baseline 29 ng/L (0-10)
[2025-09-27 18:17] LABS: Alanine Aminotransferase 26 U/L (0-33); Albumin Level 4.3 g/dL (3.5-5.2); Alkaline Phosphatase 83 U/L (35-105); Anion Gap 14.4 (5-19); Aspartate Amino Transferase 20 U/L (0-32); Blood Urea Nitrogen 19 mg/dL (6-20); Calcium 9.2 mg/dL (8.5-10.5); Carbon Dioxide 28 mmol/L (22-29); Chloride 100 mmol/L (98-107); Globulin 2.5 g/dL (1.3-4.6); Glucose 107 mg/dL (65-115); Osmolality Calculated 289 mOsm/kg (285-295); Potassium 4.4 mmol/L (3.5-5.1); Sodium 138 mmol/L (136-145); Total Protein 6.8 g/dL (6.6-8.7)
--- NOTE | 2025-09-27 18:29 | ECG_ITS ---
[facility] Date: 2025-09-27 Pat Name: Mary Koo Department: Room: Gender: Female Manager In Training: : 1970 Requested By: Rogelio Pichardo Order Number: [id number] Reading MD: GEOFFREY SAUCEDO Measurements Intervals [place] Rate: 72 P: 55 [place]: 176 QRS: -8 QRSD: 102 T: 83 QT: 391 QTc: 429 Interpretive Statements SINUS RHYTHM NONSPECIFIC T-WAVE ABNORMALITY Compared to ECG 09/27/2025 17:39:23 Sinus arrhythmia no longer present T-wave abnormality still present Electronically Signed On 09-30-2025 18:51:35 CONTROL SYSTEMS DRAFTING OFFICER by GEOFFREY SAUCEDO [email or web address]
--- NOTE | 2025-09-27 18:37 | W.ED.CHESTPA ---
HPI - Chest Pain General: Chief Complaint: Chest Pain Stated Complaint: cp Time Seen by Provider: 09/27/25 17:28 History of Present Illness: 55-year-old female presents emergency room complaining of elevated blood pressure and chest pain intermittently for the last 3 days. Pain is little worse when she takes a deep breath. She reports it radiates into her neck and into her back she not had any fever sweats chills. She tells me she has a murmur in the past. Her blood pressure has been very labile. She occasionally does take clonidine for it. Associated symptoms: Deny abdominal pain, dyspnea or fever(s) Related Data Home Medications ?Medication ?Instructions ?Recorded ?Confirmed gabapentin 300 mg capsule 300 mg PO TID 07/02/23 09/27/25 oxycodone-acetaminophen 10 mg-325 1 tab PO Q4H PRN Pain 07/02/23 09/27/25 mg tablet (Percocet) tizanidine 4 mg capsule 8 mg PO TID PRN Pain 07/02/23 09/27/25 hydrocodone bitartrate 30 mg 30 mg PO DAILY 07/27/24 09/27/25 tablet,crush resist,extended rel. 24hr (Hysingla ER) Previous Rx's ?Medication ?Instructions ?Recorded albuterol sulfate 2.5 mg/3 mL 2.5 mg (3 mL) inhalation Q4H PRN 01/01/24 (0.083 %) solution for nebulization shortness of breath or wheezing #90 mL polyethylene glycol 3350 17 17 g PO DAILY #510 grams 07/16/24 gram/dose oral powder (Miralax) atenolol 25 mg tablet 25 mg PO DAILY #90 tabs 06/28/25 quetiapine 50 mg tablet (Seroquel) 150 mg (3 x 50 mg) PO .qhs #30 tabs 07/02/25 albuterol sulfate 90 mcg/actuation See Rx Instructions .Route 08/09/25 aerosol inhaler .COMPLEX #8.5 grams CPAP (Auto-Titrating CPAP) #1 ea 09/27/25 amlodipine 5 mg tablet 5 mg PO DAILY #30 tabs 09/27/25 clonidine HCl 0.1 mg tablet 0.1 mg PO DAILY PRN Blood Pressure 09/27/25 #30 tabs olmesartan 20 mg tablet 20 mg PO DAILY #90 tabs 09/27/25 Allergies Allergy/AdvReac Type Severity Reaction Status Date / Time droperidol Allergy Severe CHEST PAIN Verified 09/27/25 16:54 ziprasidone (From Geodon) Allergy Severe SUICIDAL Verified 09/27/25 16:54 paliperidone (From Invega) Allergy Unknown Verified 09/27/25 16:54 naproxen (From Naprosyn) AdvReac Intermediate ADR-Vomitin Verified 09/27/25 16:54 g Review of Systems Const: Denies: fever(s) or chills Card: Reports: chest pain Resp: Denies: dyspnea GI: Denies: abdominal pain : Denies: dysuria, urinary frequency or urinary urgency Musc: Denies: neck pain or back pain Skin/Breast: Denies: rash PFSH ED PFSH: Medical History CAD (coronary artery disease) Surgical History H/O abdominal hysterectomy History of bladder surgery x4 H/O hand surgery rt Hx of tubal ligation Status post laparoscopic cholecystectomy Family History Other CAD (coronary artery disease) Cancer Diabetes Social History Smoking and tobacco/nicotine status: current every day tobacco/nicotine user cigarettes Packs smoked per day: 0.5 Alcohol intake: current Alcohol intake frequency: few times a month Substance/Drug Use: former Date of last use: 2014 Physical Exam Const: COMMON NORMALS: no acute distress GENERAL APPEARANCE: cooperative and comfortable ORIENTATION/CONSCIOUSNESS: Yes awake, Yes oriented to person, Yes oriented to place and Yes oriented to time HENMT: COMMON NORMALS: normocephalic, atraumatic and hearing grossly normal bilaterally HEAD & SCALP: normocephalic and atraumatic Resp: COMMON NORMALS: normal respiratory effort, No retractions, No use of accessory muscles and clear to auscultation bilaterally AUSCULTATION: clear to auscultation bilaterally Cardio: COMMON NORMALS: regular rate, regular rhythm and No murmurs present (Cardio) RATE: regular rate RHYTHM: regular rhythm GI: COMMON NORMALS: Soft to palpation and No hepatosplenomegaly present AUSCULTATION: Yes normoactive bowel sounds PALPATION: Yes Soft to palpation, No Tenderness to palpation present (GI), No Guarding due to palpation present (GI) and Yes No hepatosplenomegaly present Extremity: COMMON NORMALS: normal to inspection, capillary refill normal, no clubbing, cyanosis or edema, no calf tenderness and no pedal edema Neuro: SENSORIUM/ORIENTATION: Yes oriented to person, Yes oriented to place and Yes oriented to time Skin: COMMON NORMALS: no rashes or lesions noted GENERAL SKIN EXAM: no rashes or lesions noted Course Vital Signs: Vital signs: Vital Signs Temperature 98.2 F 09/27/25 16:49 Pulse Rate 87 09/27/25 20:42 Blood Pressure 176/82 09/27/25 20:42 Pulse Oximetry 98 09/27/25 20:42 Oxygen Delivery Me thod Room Air 09/27/25 19:51 MDM - Chest Pain Medical Decision Making Labs and imaging reviewed. Patient has had chest pain intermittently for 3 weeks very atypical in nature EKG does not show any acute changes troponins no significant delta. She does have some hypertension. Will add amlodipine and have her follow-up with her primary care doctor recheck blood pressure for the next week additionally make arrangements for her to follow-up with cardiology on an outpatient basis. Return if she has further chest discomfort or change in Medical Records I reviewed the patient's medical records. Lab Data I reviewed the patient's lab results. 09/27/25 17:47 09/27/25 17:47 Radiology Impressions Chest X-Ray 09/27/25 17:29 IMPRESSION: Cardiomegaly Laboratory Results WBC 10.19 10^3/uL (3.29-11.43) 09/27/25 17:47 RBC 4.19 10^6/uL (3.85-5.65) 09/27/25 17:47 Hgb 12.10 g/dL (11.27-16.99) 09/27/25 17:47 Hct 38.5 % (36-47) 09/27/25 17:47 MCV 91.9 fl (85-98) 09/27/25 17:47 MCH 28.9 pg (27-33) 09/27/25 17:47 MCHC 31.4 g/dL (30-55) 09/27/25 17:47 RDW 12.8 % (12.1-15.1) 09/27/25 17:47 Plt Count 253 10^3/cmm (157-399) 09/27/25 17:47 MPV 9.0 fL (7.4-10.4) 09/27/25 17:47 Neut % (Auto) 63.6 % 09/27/25 17:47 Lymph % (Auto) 23.6 % 09/27/25 17:47 Harrison % (Auto) 9.7 % 09/27/25 17:47 Eos % (Auto) 2.2 % 09/27/25 17:47 Baso % (Auto) 0.6 % 09/27/25 17:47 Neut # (Auto) 6.49 10^3/uL (1.8-7.7) 09/27/25 17:47 Lymph # (Auto) 2.4 10^3/uL (0.8-4.8) 09/27/25 17:47 Harrison # (Auto) 1.0 10^3/uL (0.2-0.9) H 09/27/25 17:47 Eos # (Auto) 0.2 10^3/uL (0.0-0.8) 09/27/25 17:47 Baso # (Auto) 0.1 10^3/uL (0.0-0.1) 09/27/25 17:47 Nucleated RBC % (auto) 0 % 09/27/25 17:47 Nucleated RBCs # 0.0 /100WBC 09/27/25 17:47 Sodium 138 mmol/L (136-145) 09/27/25 17:47 Potassium 4.4 mmol/L (3.5-5.1) 09/27/25 17:47 Chloride 100 mmol/L (98-107) 09/27/25 17:47 Carbon Dioxide 28 mmol/L (22-29) 09/27/25 17:47 Anion Gap 14.4 (5-19) 09/27/25 17:47 BUN 19 mg/dL (6-20) 09/27/25 17:47 Creatinine 1.0 mg/dL (0.5-0.9) H 09/27/25 17:47 GFR Calculation 57.1 mL/min (90-130) L 09/27/25 17:47 Glucose 107 mg/dL (65-115) 09/27/25 17:47 Calculated Osmolality 289 mOsm/kg (285-295) 09/27/25 17:47 Calcium 9.2 mg/dL (8.5-10.5) 09/27/25 17:47 Total Bilirubin 0.3 mg/dL (0.15-1.2) 09/27/25 17:47 AST 20 U/L (0-32) 09/27/25 17:47 ALT 26 U/L (0-33) 09/27/25 17:47 Alkaline Phosphatase 83 U/L (35-105) 09/27/25 17:47 Troponin T Baseline 29 ng/L (0-10) H 09/27/25 17:47 Troponin T 60 Minute 28.49 ng/L (0-10) H 09/27/25 18:37 Delta Troponin T -0.51 ABS# (0-10) L 09/27/25 18:37 Total Protein 6.8 g/dL (6.6-8.7) 09/27/25 17:47 Albumin 4.3 g/dL (3.5-5.2) 09/27/25 17:47 Globulin 2.5 g/dL (1.3-4.6) 09/27/25 17:47 All radiology interpretation(s) finalized by discharge ED provider radiology interpretation(s): Chest x-ray read by myself Cardiomegaly. Poor inspiration. No infiltrates or effusions. No increased pulmonary vasculature osseous structures normal EKG Data EKG 1: I personally reviewed and interpreted this EKG as follows: Interpretation: EKG 09/27/2025 1739 sinus rhythm rate of 78 TN interval [address]Tc [address] abnormalities noted. No previous EKGs available for comparison Discharge Plan Discharge Patient Disposition: Home Clinical Impression: Atypical chest pain, Hypertension Condition: Stable Prescriptions: New amlodipine 5 mg tablet 5 mg PO DAILY Qty: 30 0RF No Action oxycodone-acetaminophen [Percocet] 10-325 mg tablet 1 tab PO Q4H PRN (Reason: Pain) tizanidine 4 mg capsule 8 mg PO TID PRN (Reason: Pain) gabapentin 300 mg capsule 300 mg PO TID albuterol sulfate 2.5 mg /3 mL (0.083 %) solution for nebulization 2.5 mg inhalation Q4H PRN (Reason: shortness of breath or wheezing) Qty: 90 0RF atenolol 25 mg tablet 25 mg PO DAILY Qty: 90 0RF hydrocodone bitartrate [Hysingla ER] 30 mg tablet,oral only,ext.rel.24 hr 30 mg PO DAILY clonidine HCl 0.1 mg tablet 0.1 mg PO DAILY PRN (Reason: Blood Pressure) Qty: 30 0RF Rx Instructions: take only if systolic blood pressure is greater than 180 olmesartan 20 mg tablet 20 mg PO DAILY Qty: 90 0RF (DME) Auto-Titrating CPAP Device See Rx Instructions .Route Qty: 1 0RF Rx Instructions: please dispense cpap and supplies 5-12cm quetiapine [Seroquel] 50 mg tablet 150 mg PO .qhs Qty: 30 0RF albuterol sulfate 90 mcg/actuation HFA aerosol inhaler See Rx Instructions .ROUTE .COMPLEX Qty: 8.5 2RF Dose Instruction: INHALE TWO PUFFS BY MOUTH EVERY 6 HOURS NEEDED FOR SHORTNESS OF BREATH OR WHEEZING Rx Instructions: INHALE TWO PUFFS BY MOUTH EVERY 6 HOURS NEEDED FOR SHORTNESS OF BREATH OR WHEEZING polyethylene glycol 3350 [Miralax] 17 gram/dose powder 17 g PO DAILY Qty: 510 0RF Rx Instructions: Take 1 scoop daily while taking pain medications. Discharge Orders: Discharge ED (Routine); Ordered 09/27/25 Ordered By: Rogelio Akhtar Referrals: Sheree Jorge NP [Primary Care Provider, Family Practice] Patient Instructions: Chest Pain (ED), Opioid Safety, Pain Management, Patient Portal & [place] Instructions Activity Restrictions/Additional Instructions: Thank you for choosing [facility] for your healthcare needs today. It is very important that you follow up as instructed or that you return to the Emergency Department should you have concerns or if your condition changes or worsens in any way. Emergency department visits are focused on emergent conditions, in some cases you may require further evaluation on an outpatient basis. (Please note that included in your discharge packet is information concerning opioid safety and pain management. This information is given to all patients were discharged from the ER regardless of their discharge diagnosis or the medicines they usually take or are prescribed.) Print Language: Maltese Coding Level of Care Code ED Data Communications Technician for Chg Fwd Heart Score HEART Score Components History: Slightly Suspicous EKG: Normal Age: 45-64 yrs Risk Factors: 1 or 2 Risk Factors Troponin: Baseline Trop 16-45 ng/L HEART Score RESULT HEART Score: 3
[2025-09-27 18:51] VITALS: BP 189/97; PULSE 82; O2SAT 100
[2025-09-27] MEDS: labetalol 5 mg/mL SDV 20mL 10 MG IVP (18:51)
[2025-09-27 19:18] VITALS: BP 196/102; PULSE 80; O2SAT 97
[2025-09-27 19:51] VITALS: BP 176/82; PULSE 87; O2SAT 98
--- NOTE | 2025-09-27 19:52 | PC.NURSE ---
Assumed pt. care. provider at bedside pt. upset that nothing further is being done and stating your not helping me .
[2025-09-27 20:42] VITALS: BP 176/82; PULSE 87; O2SAT 98
== END 2025-09-27 20:43 | disposition home or self-care (01) ==
PROVIDERS: Emergency Provider Family Medicine; PCP Nurse Practitioner Family
DX: R07.89 Other chest pain (principal); I10 Essential (primary) hypertension; F17.210 Nicotine dependence, cigarettes, uncomplicated; I25.10 Atherosclerotic heart disease of native coronary artery without angina pectoris
CPT/HCPCS: 36415; 71045; 80053; 84484; 85025; 93005; 96374; 99285; J3490; J9999